=== PATIENT | female | born 1945 | race Caucasian/White ===

== ENCOUNTER 2018-02-15 10:18 | Outpatient (CLI) | payer MEDICARE | END 2018-02-15 10:19 | disposition home or self-care (01) | LOC: BICULT 10:18 | PROVIDERS: ATTEND Internal Medicine Nephrology | DX: N18.3 Chronic kidney disease, stage 3 (moderate) (principal); N28.1 Cyst of kidney, acquired | CPT/HCPCS: 76770 ==

== ENCOUNTER 2018-05-10 11:06 | Outpatient (CLI) | payer MEDICARE | END 2018-05-10 11:07 | disposition home or self-care (01) | LOC: BICMAMMO 11:06 | PROVIDERS: ATTEND Family Medicine | DX: Z12.31 Encounter for screening mammogram for malignant neoplasm of breast (principal); R92.1 Mammographic calcification found on diagnostic imaging of breast; Z80.3 Family history of malignant neoplasm of breast | CPT/HCPCS: 77063; 77067 ==

== ENCOUNTER 2023-02-03 10:57 | Inpatient (IN) | payer MEDICARE ==
[2023-02-03 12:32] LABS: Bilirubin Negative (Negative); Blood, Urine Negative (Negative); Clarity Turbid (Clear); Glucose, Urine (Dipstick) Normal (Negative); Ketone, Urine Negative (Negative); Leukocyte 25 Leu/uL (Negative); Nitrite Negative (Negative); Protein, Urine (Dipstick) 30 mg/dL (Neg-Trace); RBC/HPF 0-3 HPF (0-3); Specific Gravity, Urine 1.025 (1.002-1.036); pH, Urine 6.5 (5.0-9.0)
[2023-02-03 12:34] LABS: Bacteria/HPF 1+ HPF (None Seen)
[2023-02-03 13:27] LABS: Hemoglobin 14.5 g/dL (12.0-16.0); Mean Corpuscular HGB CONC 34.6 g/dL (32.0-36.0); Mean Corpuscular Hemoglobin 33.7 pg (27.0-31.0); Mean Corpuscular Volume 97.2 fl (78.0-98.0); Mean Platelet Volume 9.3 fL (7.4-10.4); Platelet Count 189 10x3/uL (130-400); RBC Distribution Width 11.3 % (11.5-14.5); Red Blood Cell (RBC) Count 4.31 mill/uL (4.20-5.40); White Blood Cell (WBC) Count 6.5 10x3/uL (4.8-10.8)
[2023-02-03 13:41] LABS: Lymphocytes 12 % (21-51); MDiff Complete? YES; Monocytes 16 % (0-10); Neutrophil 69 % (42-75); Ovalocytes SLIGHT = 2-5 cells (100X) (0-1/hpf); Platelet Morphology Comment Appears Adequate; Reactive Lymphocytes 3 % (0-10)
[2023-02-03 16:21] LABS: SARS-CoV-2 NAA Rapid Test DETECTED (NotDetected)
[2023-02-03 16:28] LABS: Amphetamine Not Detected (NotDetected); Barbiturates Screen Not Detected (NotDetected); Benzodiazepine Screen Not Detected (NotDetected); Cocaine Metabolite Screen Not Detected (NotDetected); Methadone Not Detected (NotDetected); Methamphetamine Not Detected (NotDetected); Opiate Screen Not Detected (NotDetected); Oxycodone Screen Not Detected (NotDetected); Phencyclidine (PCP) Not Detected (NotDetected); THC/Cannabinoid Screen Not Detected (NotDetected); Tricyclic Screen Not Detected (NotDetected)
[2023-02-03 17:20] LABS: Albumin 3.9 g/dL (3.4-4.8)
[2023-02-03 17:21] LABS: Chloride 110 mmol/L (98-107); Potassium 3.9 mmol/L (3.5-5.1); Sodium 142 mmol/L (136-145)
[2023-02-03 17:22] LABS: Calcium 8.8 mg/dL (7.8-10.44); Glucose 108 mg/dL (83-110)
[2023-02-03 17:23] LABS: Globulin 2.3 g/dL (2.4-3.5); Protein, Total 6.2 g/dL (5.8-8.1)
[2023-02-03 17:24] LABS: Anion Gap 16 mmol/L (10-20); Bilirubin, Total 0.4 mg/dL (0.2-1.2); Carbon Dioxide 20 mmol/L (23-31)
[2023-02-03 17:25] LABS: Alkaline Phosphatase 95 U/L (40-110)
[2023-02-03 17:26] LABS: Calc. Creatinine Clearance 0 mL/min (70-130); Estimated GFR 59
[2023-02-03 17:27] LABS: BUN (Urea Nitrogen) 21 mg/dL (9.8-20.1)
[2023-02-03 17:28] LABS: ALT (SGPT) 13 U/L (8-55); AST (SGOT) 20 U/L (5-34)
[2023-02-03 17:29] LABS: CK (CPK) 92 U/L (29-168); Lipase 33 U/L (8-78)
[2023-02-03] MEDS: Lactated Ringer's 1,000 ML IV SCH (17:38)
[2023-02-04] MEDS: Lactated Ringer's 1,000 ML IV SCH (04:14)
[2023-02-04 05:53] LABS: Hemoglobin 13.6 g/dL (12.0-16.0); Mean Corpuscular HGB CONC 33.5 g/dL (32.0-36.0); Mean Corpuscular Volume 95.4 fl (78.0-98.0); Mean Platelet Volume 8.9 fL (7.4-10.4); Platelet Count 193 10x3/uL (130-400); RBC Distribution Width 11.3 % (11.5-14.5); Red Blood Cell (RBC) Count 4.24 mill/uL (4.20-5.40); White Blood Cell (WBC) Count 6.4 10x3/uL (4.8-10.8)
[2023-02-04 06:11] LABS: Anion Gap 11 mmol/L (10-20); BUN (Urea Nitrogen) 18 mg/dL (9.8-20.1); Calc. Creatinine Clearance 0 mL/min (70-130); Calcium 8.7 mg/dL (7.8-10.44); Carbon Dioxide 26 mmol/L (23-31); Chloride 107 mmol/L (98-107); Estimated GFR 68; Glucose 98 mg/dL (83-110); Potassium 3.9 mmol/L (3.5-5.1); Sodium 140 mmol/L (136-145)
[2023-02-04 06:12] LABS: Band 6 % (5-11); Eosinophils 1 % (0-10); Lymphocytes 20 % (21-51); MDiff Complete? YES; Monocytes 11 % (0-10); Neutrophil 62 % (42-75)
[2023-02-04 06:45] VITALS: BMI 28.8
[2023-02-04 11:12] LABS: Free T4 (Free Thyroxine) 0.91 ng/dL (0.70-1.48)
[2023-02-04] MEDS ORDERED: Acetaminophen 325 MG TAB PO PRN (14:17)
[2023-02-04] MEDS: Donepezil HCl 10 MG TAB PO SCH (22:18)
[2023-02-05] MEDS ORDERED: Levothyroxine Sodium 50 MCG TAB PO SCH (06:00)
[2023-02-05] MEDS: pyridOXINE 50 MG (B6) TAB PO SCH (08:53)
[2023-02-05] MEDS: Folic Acid 1 MG TAB PO SCH (08:53)
[2023-02-05] MEDS: Cyanocobalamin (Vitamin B-12) 1,000 MCG TAB PO SCH (08:53)
[2023-02-05] MEDS: Donepezil HCl 10 MG TAB PO SCH (21:50)
[2023-02-06] MEDS: Levothyroxine Sodium 25 MCG TAB PO SCH (06:35)
[2023-02-06] MEDS: pyridOXINE 50 MG (B6) TAB PO SCH (10:04)
[2023-02-06] MEDS: Cyanocobalamin (Vitamin B-12) 1,000 MCG TAB PO SCH (10:05)
[2023-02-06] MEDS: Folic Acid 1 MG TAB PO SCH (10:07)
[2023-02-06] MEDS: Donepezil HCl 10 MG TAB PO SCH (20:55)
[2023-02-07] MEDS: Levothyroxine Sodium 25 MCG TAB PO SCH (05:27)
[2023-02-07] MEDS: Folic Acid 1 MG TAB PO SCH (08:34)
[2023-02-07] MEDS: pyridOXINE 50 MG (B6) TAB PO SCH (08:34)
[2023-02-07] MEDS: Cyanocobalamin (Vitamin B-12) 1,000 MCG TAB PO SCH (09:01)
[2023-02-07] MEDS: Donepezil HCl 10 MG TAB PO SCH (21:03)
[2023-02-08] MEDS: Levothyroxine Sodium 25 MCG TAB PO SCH (05:13)
[2023-02-08] MEDS: Cyanocobalamin (Vitamin B-12) 1,000 MCG TAB PO SCH (10:47)
[2023-02-08] MEDS: pyridOXINE 50 MG (B6) TAB PO SCH (10:49)
[2023-02-08] MEDS: Folic Acid 1 MG TAB PO SCH (10:50)
[2023-02-08 12:10] VITALS: BP 112/59; TEMP 97.9
== END 2023-02-08 12:52 | DRG 177 ==
LOC: ERS 10:57 → NEURO 15:17
PROVIDERS: ADMIT Student in an Organized Health Care Education/Training Program; ATTEND Family Medicine
PROC: 8E0ZXY6 Isolation (ICD-10-PCS; principal; 2023-02-03)
DX: U07.1 COVID-19 (principal); G93.41 Metabolic encephalopathy; F05 Delirium due to known physiological condition; Z66 Do not resuscitate; E03.9 Hypothyroidism, unspecified; F03.90 Unspecified dementia, unspecified severity, without behavioral disturbance, psychotic disturbance, mood disturbance, and anxiety; R94.31 Abnormal electrocardiogram [ECG] [EKG]; I10 Essential (primary) hypertension; E86.0 Dehydration; R13.10 Dysphagia, unspecified; L89.152 Pressure ulcer of sacral region, stage 2; Z98.890 Other specified postprocedural states; Z79.899 Other long term (current) drug therapy; Z74.01 Bed confinement status
CPT/HCPCS: 36415; 51701; 70450; 71045; 80048; 80053; 80306; 81003; 81015; 82140; 82550; 83690; 83880; 84439; 84443; 84481; 84484; 85025; 87077; 87086; 87186; 93005; 97139; J1650; J7120